=== PATIENT | female | born 1945 | race Asian ===

== ENCOUNTER 2023-11-02 00:54 | Observation (INO) | payer OTHER ==
[2023-11-02] MEDS ORDERED: ALBUTEROL SO4 2.5/IPRATROPIUM 0.5 INH SOL 3 ML VIAL.NEB. NEB ONE (01:24)
[2023-11-02] MEDS: ALBUTEROL SO4 2.5/IPRATROPIUM 0.5 INH SOL 3 ML VIAL.NEB. NEB SCH (01:43)
[2023-11-02 01:46] LABS: BASO % 0.8 % (0-2.0); EOS % 6.1 % (0-4.5); HEMATOCRIT 28.8 % (32.4-45.2); HEMOGLOBIN 9.4 GM/dL (10.7-15.3); LYMPH % 14.5 % (8-40); MCH 26.3 pg (25.7-33.7); MCHC 32.8 g/dl (32.0-36.0); MEAN CELL VOLUME 80.2 fl (80-96); MEAN PLT VOLUME 8.9 fl (7.5-11.1); MONO % 6.7 % (3.8-10.2); NEUT % 71.9 % (42.8-82.8); PLATELET COUNT 236 10^3/uL (134-434); RBC 3.59 M/mm3 (3.60-5.2); WHITE BLOOD COUNT 7.5 K/mm3 (4.0-10.0)
[2023-11-02 01:51] LABS: VENOUS O2 SATURATION 84.1 % (70-80); VENOUS PCO2 39.3 mmHg (38-52); VENOUS PH 7.317 (7.310-7.410)
[2023-11-02 02:03] LABS: POTASSIUM 5.3 mmol/L (3.5-5.1)
[2023-11-02 02:06] LABS: ALBUMIN 3.1 g/dl (3.4-5.0); BLOOD UREA NITROGEN 39.7 mg/dL (7-18); CALCIUM 8.5 mg/dL (8.5-10.1); MAGNESIUM 2.6 mg/dL (1.8-2.4)
[2023-11-02 02:09] LABS: CREATININE 1.2 mg/dL (0.55-1.3)
[2023-11-02 02:11] LABS: BILIRUBIN,TOTAL 0.2 mg/dL (0.2-1); TOT PROT 7.2 g/dl (6.4-8.2)
[2023-11-02 02:14] LABS: N-TERMINAL BNP 590.3 pg/ml (5-450)
[2023-11-02] MEDS: TORSEMIDE 20 MG TABLET (FP) PO SCH (06:12)
[2023-11-02] MEDS ORDERED: methylPREDNISolone NA SUCC 40 MG/1 ML VIAL ONE (06:15)
[2023-11-02] MEDS: methylPREDNISolone NA SUCC 40 MG/1 ML VIAL IVPUSH SCH (06:29)
[2023-11-02 07:44] LABS: HEMATOCRIT 29.3 % (32.4-45.2); HEMOGLOBIN 9.3 GM/dL (10.7-15.3); MCH 25.7 pg (25.7-33.7); MCHC 31.7 g/dl (32.0-36.0); MEAN CELL VOLUME 81.2 fl (80-96); MEAN PLT VOLUME 9.6 fl (7.5-11.1); PLATELET COUNT 250 10^3/uL (134-434); RBC 3.61 M/mm3 (3.60-5.2); RDW 15.8 % (11.6-15.6); WHITE BLOOD COUNT 6.8 K/mm3 (4.0-10.0)
[2023-11-02 07:45] LABS: PH,URINE 5.5 (5.0-8.0); URINE APPEARANCE CLEAR; URINE BILIRUBIN NEGATIVE (NEGATIVE); URINE COLOR YELLOW; URINE GLUCOSE (UA) NEGATIVE (NEGATIVE); URINE KETONE NEGATIVE (NEGATIVE); URINE LEUK ESTERASE NEGATIVE (NEGATIVE); URINE NITRITE NEGATIVE (NEGATIVE); URINE PROTEIN 2+ (NEGATIVE); URINE UROBILINOGEN 0.2 mg/dL (0.2-1.0)
[2023-11-02] MEDS: ETHACRYNIC ACID 25 MG TABLET PO SCH ×2 (07:45→09:27)
[2023-11-02 07:55] LABS: POTASSIUM 5.1 mmol/L (3.5-5.1)
[2023-11-02 07:57] LABS: CALCIUM 8.6 mg/dL (8.5-10.1)
[2023-11-02 07:57] LABS: EPI CELLS 1.3 /uL (0-25.1); URINE BACTERIA 6.6 /uL (0-1359); URINE WBC 1.1 /uL (0-25.8)
[2023-11-02 07:58] LABS: BLOOD UREA NITROGEN 36.7 mg/dL (7-18); MAGNESIUM 2.6 mg/dL (1.8-2.4)
[2023-11-02 08:01] LABS: CREATININE 1.2 mg/dL (0.55-1.3); PHOSPHOROUS 4.6 mg/dL (2.5-4.9)
[2023-11-02 08:02] LABS: BILIRUBIN,TOTAL 0.3 mg/dL (0.2-1)
[2023-11-02 08:03] LABS: TOT PROT 6.8 g/dl (6.4-8.2)
[2023-11-02] MEDS ORDERED: LEVALBUTEROL HCL 0.63 MG/3 ML VIAL.NEB. IH ONE (08:08)
[2023-11-02] MEDS: LEVALBUTEROL HCL 0.31 MG/3 ML VIAL.NEB IH SCH (08:21)
[2023-11-02] MEDS ORDERED: FERROUS SO4 325 MG TABLET (FP) ONE ×2 (09:40→20:26)
[2023-11-02] MEDS ORDERED: TORSEMIDE 20 MG TABLET (FP) PO SCH (10:00)
[2023-11-02] MEDS: FERROUS SO4 325 MG TABLET (FP) PO SCH (10:00)
[2023-11-02] MEDS: BUDESONIDE/FORMETEROL FUMARATE 160/4.5 mcg INHALER IH SCH (10:13)
[2023-11-02] MEDS: TORSEMIDE 20 MG TABLET (FP) PO ONE (10:13)
[2023-11-02 12:52] LABS: HEPATITIS B SURFACE AG MATERN NON-REACTIVE (NONREACTIVE)
[2023-11-02] MEDS ORDERED: SODIUM ZIRCONIUM CYCLOSILICATE (LOKELMA) 5 GM PACKET ONE (14:07)
[2023-11-02] MEDS ORDERED: LEVALBUTEROL HCL 0.31 MG/3 ML VIAL.NEB IH ONE ×2 (14:07→20:25)
[2023-11-02] MEDS: SODIUM ZIRCONIUM CYCLOSILICATE (LOKELMA) 5 GM PACKET PO ONE (14:15)
[2023-11-02] MEDS ORDERED: MONTELUKAST NA 10 MG TABLET ONE (20:25)
[2023-11-02] MEDS: MONTELUKAST NA 10 MG TABLET PO SCH (21:14)
[2023-11-03 05:19] VITALS: BMI 33.5
[2023-11-03 07:38] LABS: POTASSIUM 4.4 mmol/L (3.5-5.1)
[2023-11-03 07:41] LABS: CALCIUM 8.9 mg/dL (8.5-10.1)
[2023-11-03 07:42] LABS: BLOOD UREA NITROGEN 30.1 mg/dL (7-18)
[2023-11-03 07:46] LABS: CREATININE 1.2 mg/dL (0.55-1.3)
[2023-11-03] MEDS ORDERED: methylPREDNISolone NA SUCC 40 MG/1 ML VIAL IVPUSH SCH (10:00)
[2023-11-03 13:06] VITALS: BP 157/67; PULSE 71; RESP 15; TEMP 98.1
[2023-11-03] MEDS: metoPROLOL SUCCINATE 25 MG TAB.SR.24H (FP) PO SCH (14:24)
== END 2023-11-03 15:20 | disposition home or self-care (01) ==
LOC: JER 00:54 → JERBED 03:17 → J4S 11-03 02:23
PROVIDERS: ADMIT Internal Medicine; ATTEND Internal Medicine
PROC: 3E0F7GC Introduction of Other Therapeutic Substance into Respiratory Tract, Via Natural or Artificial Opening (ICD-10-PCS; principal; 2023-11-02)
PROC: 3E033GC Introduction of Other Therapeutic Substance into Peripheral Vein, Percutaneous Approach (ICD-10-PCS; 2023-11-02)
DX: I11.0 Hypertensive heart disease with heart failure (principal); I50.9 Heart failure, unspecified; G51.0 Bell's palsy; I44.7 Left bundle-branch block, unspecified; R06.00 Dyspnea, unspecified; D64.9 Anemia, unspecified; J45.909 Unspecified asthma, uncomplicated; R74.01 Elevation of levels of liver transaminase levels; Z88.8 Allergy status to other drugs, medicaments and biological substances
CPT/HCPCS: 0241U-QW; 36415; 71046-TC-FY; 80048; 80053; 80061; 81003; 82550; 82728; 82803; 83540; 83550; 83735; 83880; 84100; 84439; 84443; 84466; 84484; 85025; 85027; 86704; 86706; 86708; 86803; 87340; 93005; 93010; 93306-TC; 94640; 96374; 97116-GP; 97161-GP; 99285-25; G0378